=== PATIENT | male | born 2005 | race Caucasian/White ===

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

== ENCOUNTER 2025-03-25 22:46 | Emergency (ER) | payer OTHER, SELFPAY ==
--- OUTSIDE RECORDS SUMMARY | 2025-03-25 22:49 | XMS_ITS | Clinical Summary ---
Author Organization [facility] Address [address] [place] [address] Care Team Providers Care Cheese Cook Name Role Phone Unavailable Primary Care Provider Unavailabl e Social History Tobacco Use Types Packs/Day Years Used Date Smoking Tobacco: Never Assessed Sex and Gender Information Value Date Recorded Sex Assigned at Not on file Legal Sex Male 8:24 PM CDT Gender Identity Not on file Sexual Orientation Not on file Last Filed Vital Signs Vital Sign Reading Time Taken Comments Blood Pressure 82/52 10/22/2012 2:48 PM EDGE STRIPPER Pulse 84 10/22/2012 2:48 PM EDGE STRIPPER Temperature - - Respiratory Rate - - Oxygen Saturation - - Inhaled Oxygen Concentration - - Weight 20.1 kg (44 lb 6.4 oz) 10/22/2012 2:48 PM EDGE STRIPPER Height 123.2 cm (4' 0.5 ) 10/22/2012 2:48 PM EDGE STRIPPER Body Mass Index 13.27 10/22/2012 2:48 PM EDGE STRIPPER Body Mass Index Percentile 1.28% 10/22/2012 2:4 8 PM EDGE STRIPPER Growth Chart: [facility] (Boys, 2-2 0 Years) Plan of Treatment Health Maintenance Due Date Last Done Comments Annual Physical 2008 HPV Vaccines (1 - Male 3-dos e series) 2020 Meningococcal B Vaccine (1 o f 2 - Standard) 2021 Hepatitis C 2023 DTaP, Tdap and Td Vaccines ( 1 - Tdap) 2024 Hepatitis B Vaccines (1 of 3 - 19+ 3-dose series) 2024 COVID-19 Vaccine (1 - 2023-2 5 season) 2024 Meningococcal Vaccine Aged Out No reinaldo holly eligible based on patient's age to complete this topic Pneumococcal Vaccine: Pediat rics (0 to 5 Years) and At-Risk Patients (6 to 49 Years) Aged Out No longer eligible b ased on patient's age to complete this topic RSV Immunizations Under 20 Months Aged Out No longer eligible based on patient's age to complete this topic
[2025-03-25 22:50] VITALS: BP 121/52; PULSE 96; RESP 18; TEMP 36.7; O2SAT 99
[2025-03-25 23:37] LABS: Basophils Absolute Auto 0.1 K/mm3 (0.0-0.1); Basophils Percent Auto 0.6 % (0.2-1.2); Eosinophils Absolute Auto 0.1 K/mm3 (0-0.3); Eosinophils Percent Auto 1.5 % (0-4.4); Hematocrit 45.1 % (42.0-52.0); Hemoglobin 15.5 g/dL (14.0-18.0); Immature Granulocyte Absolute 0.02 K/mm3 (0.00-0.031); Immature Granulocyte Percent A 0.3 % (0-0.5); Lymphocytes Absolute Auto 2.16 K/mm3 (0.9-3.2); Lymphocytes Percent Auto 27.4 % (18.3-44.2); Mean Corpuscular HGB Conc 34.4 g/dl (32-36); Mean Corpuscular Hemoglobin 32.2 pg (26-34); Mean Corpuscular Volume 93.8 fl (80-100); Mean Platelet Volume 9.1 fl (7.4-10.4); Monocytes Absolute Auto 0.9 K/mm3 (0.1-0.6); Monocytes Percent Auto 11.5 % (2.6-8.5); Neutrophils Absolute Auto 4.6 K/mm3 (1.3-6.7); Neutrophils Percent Auto 58.7 % (45.5-73.1); Platelet Count Result 402 k/mm3 (150-375); Red Blood Count 4.81 M/mm3 (4.6-6.20); Red Cell Distribution Width 11.9 % (11.5-14.5); White Blood Count 7.9 K/mm3 (4.5-10.0)
[2025-03-25 23:49] LABS: Ethanol < 10 mg/dL (<10)
[2025-03-25 23:54] LABS: Amphetamine Screen Urine Negative (Negative); Barbiturate Screen Urine Negative (Negative); Benzodiazepines Screen Urine Negative (Negative); Cannabinoid Screen Urine Negative (Negative); Cocaine Screen Urine Negative (Negative); Methadone Screen Urine Negative (Negative); Opiate Screen Urine Negative (Negative); Phencyclidine Screen Urine Negative (Negative)
[2025-03-25 23:56] LABS: Alanine Aminotransferase 13 U/L (6-50); Alkaline Phosphatase 82 U/L (58-237); Anion Gap 13 mmol/L (4-12); Aspartate Amino Transferase 23 U/L (17-59); Bilirubin,Total 0.5 mg/dL (0.2-1.3); Blood Urea Nitrogen 5 mg/dL (8-21); Calcium 9.3 mg/dL (8.9-10.7); Carbon Dioxide 27 mmol/L (22-30); Chloride 104 mmol/L (98-107); Estimated CRCL calculation 96 ml/min; Estimated Glomerular Filt Rate > 60; Glucose 106 mg/dL (65-110); Potassium 3.5 mmol/L (3.4-5.0); Sodium 144 mmol/L (134-143)
[2025-03-26 00:03] LABS: Add Urine Microscopic? YES; Appearance Urine Clear (Clear); Bacteria Urine None Seen /hpf; Bilirubin Urine Negative (Negative); Blood Urine Negative (Negative); Color Urine Yellow (Yellow); Glucose Urine UA Negative (Negative); Ketones Urine Trace mg/dL (Negative); Leukocyte Esterase Ur Negative LEU/UL (Negative); Mucus Urine Present /lpf; Need Manual Microscopic Reviewed; Nitrate Urine Negative (Negative); Protein Urine 1+ mg/dL (Negative); RBC Urine 0-2 /hpf (0-2); Specific Grav Ur 1.021 (1.001-1.035); Squamous Epithelial Cell Urine None Seen /hpf (Few); WBC Urine 0-5 /hpf (0-3)
[2025-03-26 00:08] LABS: Free T4 Free Thyroxine 1.13 ng/dL (0.78-2.19)
[2025-03-26 00:13] LABS: Influenza A QL RT-PCR Negative (Negative); Influenza B QL RT-PCR Negative (Negative); RSV RNA, RT-PCR Negative (Negative); SARS-CoV-2 RNA PCR Negative (Negative)
--- OUTSIDE RECORDS SUMMARY | 2025-03-26 00:21 | XMS_ITS | Clinical Summary ---
Author Organization [facility] Address [address] [place] [address] Care Team Providers Care Bulker Name Role Phone Unavailable Primary Care Provider [...] Comments Blood Pressure 82/52 10/22/2012 2:48 PM CLAIM AGENT Pulse 84 10/22/2012 2:48 PM CLAIM AGENT Temperature - - Respiratory Rate - - Oxygen Saturation - - Inhaled Oxygen Concentration - - Weight 20.1 kg (44 lb 6.4 oz) 10/22/2012 2:48 PM CLAIM AGENT Height 123.2 cm (4' 0.5 ) 10/22/2012 2:48 PM CLAIM AGENT Body Mass Index 13.27 10/22/2012 2:48 PM CLAIM AGENT Body Mass Index Percentile 1.28% 10/22/2012 2:4 8 PM CLAIM AGENT Growth Chart: [facility] (Boys, 2-2 0 Years) Plan of Treatment [...]
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
[2025-03-26 05:51] VITALS: BP 113/66; PULSE 76; RESP 19; TEMP 36.7; O2SAT 99
--- NOTE | 2025-03-26 07:10 | PC.NURSE ---
Pt has been accepted at [facility], report given to Luh EVANS.
== END 2025-03-26 07:12 ==
LOC: ANHED 03-26 00:16
PROVIDERS: Emergency Provider Registered Nurse
DX: R45.851 Suicidal ideations (principal); Z59.00 Homelessness unspecified; Z11.59 Encounter for screening for other viral diseases
CPT/HCPCS: 36415; 80053; 80307; 81001; 82077; 84439; 84443; 85025; 87637; 99285

== ENCOUNTER 2025-09-22 22:34 | Emergency (ER) | payer OTHER, SELFPAY ==
[2025-09-22 22:41] VITALS: BP 140/82; PULSE 96; RESP 16; TEMP 37.1; O2SAT 100
[2025-09-22 23:14] LABS: Add Urine Microscopic? NO; Appearance Urine Clear (Clear); Glucose Urine UA Negative (Negative); Leukocyte Esterase Ur Negative LEU/UL (Negative); Nitrate Urine Negative (Negative); Specific Grav Ur 1.006 (1.001-1.035)
[2025-09-22 23:14] LABS: Hematocrit 46.0 % (42.0-52.0); Hemoglobin 16.0 g/dL (14.0-18.0); Immature Granulocyte Percent A 0.2 % (0-0.5); Lymphocytes Absolute Auto 2.42 K/mm3 (0.9-3.2); Mean Corpuscular HGB Conc 34.8 g/dl (32-36); Mean Corpuscular Hemoglobin 32.1 pg (26-34); Mean Corpuscular Volume 92.2 fl (80-100); Nucleated Red Blood Cells Absolute Auto 0.000 K/mm3 (0.0-0.012); Nucleated Red Blood Cells Perc 0.0 % (0.0-0.2); Platelet Count Result 570 k/mm3 (150-375); Red Blood Count 4.99 M/mm3 (4.6-6.20); White Blood Count 10.8 K/mm3 (4.5-10.0)
--- NOTE | 2025-09-22 23:30 | PC.NURSE ---
Pt presents to ED for psych evaluation states he has been depressed for the past 3 days with suicidal ideation. When asked if he has a plan pt states i have multiple which probably isn't good. I plan on carving horrible words on my body, slice my throat and wrist, or overdose on my medications. Pt states he has been homeless for 2 years, and is losing friends.
[2025-09-22 23:32] LABS: Cannabinoid Screen Urine Negative (Negative)
[2025-09-22 23:33] LABS: Alanine Aminotransferase 14 U/L (6-50); Albumin Level 5.0 g/dL (3.5-5.1); Alkaline Phosphatase 77 U/L (38-126); Anion Gap 9 mmol/L (4-12); Aspartate Amino Transferase 19 U/L (17-59); Bilirubin,Total 0.6 mg/dL (0.2-1.3); Blood Urea Nitrogen 8 mg/dL (9-20); Calcium 9.3 mg/dL (8.4-10.2); Carbon Dioxide 26 mmol/L (22-30); Chloride 105 mmol/L (98-107); Estimated CRCL calculation 82 ml/min; Estimated Glomerular Filt Rate > 60; Glucose 103 mg/dL (65-110); Potassium 3.8 mmol/L (3.4-5.0); Sodium 140 mmol/L (137-145); Total Protein 7.7 g/dL (6.3-8.2)
[2025-09-22 23:38] VITALS: BP 120/90; PULSE 99; RESP 16; TEMP 37.2; O2SAT 99
[2025-09-22 23:46] LABS: Influenza A QL RT-PCR Negative (Negative); Influenza B QL RT-PCR Negative (Negative); RSV RNA, RT-PCR Negative (Negative); SARS-CoV-2 RNA PCR Negative (Negative)
[2025-09-22 23:53] LABS: Thyroid Stimulating Hormone Reflex 1.150 uIU/mL (0.465-4.68)
--- NOTE | 2025-09-23 00:06 | ED_ITS ---
HPI - Psych General Chief Complaint: Psychiatric Symptoms <Veronica Castro APRN - Last Filed: 09/23/25 02:12> Stated Complaint: depression and self harm <Veronica Castro APRN - Last Filed: 09/23/25 02:12> Time Seen by Provider: 09/22/25 22:59 <Veronica Castro APRN - Last Filed: 09/23/25 02:12> History of Present Illness HPI Narrative: Patient is a 20-year-old male presents to the ER with suicidal ideation and depression. He reports he is homeless and has had increased stress in his life recently. Patient was here for evaluation 6 months ago and was treated in a psychiatric hospital. He reports he was discharged on medications and was doing better but then he became stressed again and stop taking his medications. Patient reports he was discharged home on Risperdal, sertraline, and trazodone. Patient endorses decreased p.o. intake recently. He reports his suicidal ideation restarted 3 days ago when he could not sleep and started ruminating about taking a knife to his arms, wrists, neck, and then hanging himself. Patient reports those extreme thoughts have decreased some but he is still having suicidal ideation. He denies any other medical history relevant to this ER visit. Patient denies any physical pain, recent fevers, or shortness of breath. <Veronica Castro APRN - Last Filed: 09/23/25 02:12> Related Data Home Medications: Home Medications ?Medication ?Instructions ?Recorded ?Confirmed ?Last Taken ?Type No Home Medications 02/22/24 02/22/24 U nknown History <Veronica Castro APRN - Last Filed: 09/23/25 02:12> Allergies/Adverse Reactions: Allergies Allergy/AdvReac Type Severity Reaction Status Date / Time No Known Allergies Allergy Verified 09/22/25 22:35 <Veronica Castro APRN - Last Filed: 09/23/25 02:12> Review of Systems 2 Review of Systems: All systems reviewed & are unremarkable except as noted in HPI and below <Veronica Castro APRN - Last Filed: 09/23/25 02:12> COUNTS INCLUDE 234 BEDS AT THE [facility] Social History Social History: Social History Substance use type: does not use <Veronica Castro APRN - Last Filed: 09/23/25 02:12> Exam 2 Narrative: GENERAL: Well appearing, cachetic, non-toxic, in no acute distress. HEAD: Normocephalic, atraumatic. NECK: Supple. No adenopathy, no masses. RESPIRATORY: Airway patent, respirations nonlabored. Clear to auscultation bilaterally, no rales, rhonchi, wheezing. CARDIOVASCULAR: Regular rate and rhythm without murmurs, rubs, or gallops. Peripheral pulses 2+ and equal bilaterally. ABDOMINAL: Soft, nontender, nondistended, no hepatosplenomegaly. Normoactive BS. MUSCULOSKELETAL: Moves all extremities. Strength/ROM intact without gross deformities. SKIN: Warm, dry, pallor. No rashes. NEURO: A&O X3. pallor. Cranial nerves II-XII intact. No ataxic movements. PSYCHIATRIC: Appropriate mood and affect. Normal interaction. <Veronica Castro APRN - Last Filed: 09/23/25 02:12> Course Course Emergency Course: SELINA: Patient was evaluated by crisis. He was safety planned. Patient discharged. <Eduardo Levin MD - Last Filed: 09/23/25 05:49> Vital Signs Vital signs: Vital Signs Temperature 98.7 F 09/22/25 22:41 Pulse Rate 96 09/22/25 22:41 Respiratory Rate 16 09/22/25 22:41 Blood Pressure 140/82 09/22/25 22:41 Pulse Oximetry 100 09/22/25 22:41 Oxygen Delivery Room Air 09/22/25 22:41 Temperature 98.9 F 09/22/25 23:38 Pulse Rate 99 09/22/25 23:38 Respiratory Rate 16 09/22/25 23:38 Blood Pressure 120/90 09/22/25 23:38 Pulse Oximetry 99 09/22/25 23:38 Oxygen Delivery Room Air 09/22/25 22:41 <Veronica Castro APRN - Last Filed: 09/23/25 02:12> Vital Signs Temperature 98.7 F 09/22/25 22:41 Pulse Rate 96 09/22/25 22:41 Respiratory Rate 16 09/22/25 22:41 Blood Pressure 140/82 09/22/25 22:41 Pulse Oximetry 100 09/22/25 22:41 Oxygen Delivery Room Air 09/22/25 22:41 Temperature 98.9 F 09/22/25 23:38 Pulse Rate 99 09/22/25 23:38 Respiratory Rate 16 09/22/25 23:38 Blood Pressure 120/90 09/22/25 23:38 Pulse Oximetry 99 09/22/25 23:38 Oxygen Delivery Room Air 09/22/25 22:41 <Eduardo Levin MD - Last Filed: 09/23/25 05:49> MDM - Psych MDM Narrative Medical decision making narrative: Patient is a 20-year-old male presents to the ER with suicidal ideation and depression. He reports he is homeless and has had increased stress in his life recently. Patient was here for evaluation 6 months ago and was treated in a psychiatric hospital. He reports he was discharged on medications and was doing better but then he became stressed again and stop taking his medications. Patient reports he was discharged home on Risperdal, sertraline, and trazodone. Patient endorses decreased p.o. intake recently. He reports his suicidal ideation restarted 3 days ago when he could not sleep and started ruminating about taking a knife to his arms, wrists, neck, and then hanging himself. Patient reports those extreme thoughts have decreased some but he is still having suicidal ideation. He denies any other medical history relevant to this ER visit. Patient denies any physical pain, recent fevers, or shortness of breath. He would like to be admitted to a psychiatric hospital for further treatment. Labs Ordered: CBC, CMP, TSH, UA, UDS, COVID/flu/RSV Imaging Ordered: None necessary Medications Ordered: None necessary Results: Patient's lab work results were largely unremarkable. Diagnosis: Suicidal ideation, major depressive disorder Consults: 2400-patient is medically clear for psychiatric intake. 0200- Psychiatric intake here to evaluate pt. <Veronica Castro APRN - Last Filed: 09/23/25 02:12> Differential Diagnosis Differential diagnosis: Likely acute psychosis, suicidal ideation, bipolar disorder, depression, drug-induced psychotic disorder and acute anxiety <Veronica Castro APRN - Last Filed: 09/23/25 02:12> Lab Data Attestation: I reviewed the patient's lab results. <Veronica Castro APRN - Last Filed: 09/23/25 02:12> Result diagrams: 09/22/25 23:04 09/22/25 23:03 <Veronica Castro APRN - Last Filed: 09/23/25 02:12> Labs: Lab Results 09/22/25 09/22/25 09/22/25 Range/Units 23:02 23:03 23:04 WBC 10.8 H (4.5-10.0) K/mm3 RBC 4.99 (4.6-6.20) M/mm3 Hgb 16.0 (14.0-18.0) g/dL Hct 46.0 (42.0-52.0) % MCV 92.2 (80-100) fl MCH 32.1 (26-34) pg MCHC 34.8 (32-36) g/dl RDW 11.9 (11.5-14.5) % Plt Count 570 H (150-375) k/mm3 MPV 9.2 (7.4-10.4) fl Immature Gran % (Auto) 0.2 (0-0.5) % Neut % (Auto) 67.3 (45.5-73.1) % Lymph % (Auto) 22.5 (18.3-44.2) % [place] % (Auto) 8.2 (2.6-8.5) % Eos % (Auto) 1.2 (0-4.4) % Baso % (Auto) 0.6 (0.2-1.2) % Lymph # (Auto) 2.42 (0.9-3.2) K/mm3 [place] # (Auto) 0.9 H (0.1-0.6) K/mm3 Eos # (Auto) 0.1 (0-0.3) K/mm3 Baso # (Auto) 0.1 (0.0-0.1) K/mm3 Abs Immat Gran (auto) 0.02 (0.00-0.031) K/mm3 Absolute Neuts (auto) 7.3 H (1.3-6.7) K/mm3 Absolute Nucleated RBC 0.000 (0.0-0.012) K/mm3 Nucleated RBC % 0.0 (0.0-0.2) % Sodium 140 (137-145) mmol/L Potassium 3.8 (3.4-5.0) mmol/L Chloride 105 (98-107) mmol/L Carbon Dioxide 26 (22-30) mmol/L Anion Gap 9 (4-12) mmol/L BUN 8 L (9-20) mg/dL Creatinine 0.89 (0.7-1.3) mg/dL Estim Creat Clear Calc 82 ml/min Estimated GFR > 60 (59 - ) Glucose 103 (65-110) mg/dL Calcium 9.3 (8.4-10.2) mg/dL Total Bilirubin 0.6 (0.2-1.3) mg/dL AST 19 (17-59) U/L ALT 14 (6-50) U/L Alkaline Phosphatase 77 (38-126) U/L Total Protein 7.7 (6.3-8.2) g/dL Albumin 5.0 (3.5-5.1) g/dL TSH (Reflex) 1.150 (0.465-4.68) uIU/mL Urine Color Yellow (Yellow) Urine Appearance Clear (Clear) Urine pH 7.5 (5.0-9.0) Ur Specific [place] 1.006 (1.001-1.035) Urine Protein Negative (Negative) mg/dL Urine Glucose (UA) Negative (Negative) mg/dL Urine Ketones Negative (Negative) mg/dL Ur Blood (Man) Negative (Negative) Urine Nitrate Negative (Negative) Urine Bilirubin Negative (Negative) Urine Urobilinogen 0.2 (<2.0) mg/dL Leukocyte Esterase Rfl Negative (Negative) DARLINE/UL Urine Opiates Screen Negative (Negative) Urine Methadone Screen Negative (Negative) Ur Barbiturates Screen Negative (Negative) Ur Phencyclidine Scrn Negative (Negative) Ur Amphetamine Screen Negative (Negative) U Benzodiazepines Scrn Negative (Negative) Urine Cocaine Screen Negative (Negative) U Cannabinoids Screen Negative (Negative) Ethyl Alcohol < 10 (<10) mg/dL Influenza A (RT-PCR) Negative (Negative) Influenza B (RT-PCR) Negative (Negative) RSV (RT-PCR) Negative (Negative) SARS-CoV-2 RNA (RT-PCR) Negative (Negative) <Veronica Castro, GOLF COURSE PATROLLER - Last Filed: 09/23/25 02:12> Lab Results 09/22/25 09/22/25 09/22/25 Range/Units 23:02 23:03 23:04 WBC 10.8 H (4.5-10.0) K/mm3 RBC 4.99 (4.6-6.20) M/mm3 Hgb 16.0 (14.0-18.0) g/dL Hct 46.0 (42.0-52.0) % MCV 92.2 (80-100) fl MCH 32.1 (26-34) pg MCHC 34.8 (32-36) g/dl RDW 11.9 (11.5-14.5) % Plt Count 570 H (150-375) k/mm3 MPV 9.2 (7.4-10.4) fl Immature Gran % (Auto) 0.2 (0-0.5) % Neut % (Auto) 67.3 (45.5-73.1) % Lymph % (Auto) 22.5 (18.3-44.2) % [place] % (Auto) 8.2 (2.6-8.5) % Eos % (Auto) 1.2 (0-4.4) % Baso % (Auto) 0.6 (0.2-1.2) % Lymph # (Auto) 2.42 (0.9-3.2) K/mm3 [place] # (Auto) 0.9 H (0.1-0.6) K/mm3 Eos # (Auto) 0.1 (0-0.3) K/mm3 Baso # (Auto) 0.1 (0.0-0.1) K/mm3 Abs Immat Gran (auto) 0.02 (0.00-0.031) K/mm3 Absolute Neuts (auto) 7.3 H (1.3-6.7) K/mm3 Absolute Nucleated RBC 0.000 (0.0-0.012) K/mm3 Nucleated RBC % 0.0 (0.0-0.2) % Sodium 140 (137-145) mmol/L Potassium 3.8 (3.4-5.0) mmol/L Chloride 105 (98-107) mmol/L Carbon Dioxide 26 (22-30) mmol/L Anion Gap 9 (4-12) mmol/L BUN 8 L (9-20) mg/dL Creatinine 0.89 (0.7-1.3) mg/dL Estim Creat Clear Calc 82 ml/min Estimated GFR > 60 (59 - ) Glucose 103 (65-110) mg/dL Calcium 9.3 (8.4-10.2) mg/dL Total Bilirubin 0.6 (0.2-1.3) mg/dL AST 19 (17-59) U/L ALT 14 (6-50) U/L Alkaline Phosphatase 77 (38-126) U/L Total Protein 7.7 (6.3-8.2) g/dL Albumin 5.0 (3.5-5.1) g/dL TSH (Reflex) 1.150 (0.465-4.68) uIU/mL Urine Color Yellow (Yellow) Urine Appearance Clear (Clear) Urine pH 7.5 (5.0-9.0) Ur Specific [place] 1.006 (1.001-1.035) Urine Protein Negative (Negative) mg/dL Urine Glucose (UA) Negative (Negative) mg/dL Urine Ketones Negative (Negative) mg/dL Ur Blood (Man) Negative (Negative) Urine Nitrate Negative (Negative) Urine Bilirubin Negative (Negative) Urine Urobilinogen 0.2 (<2.0) mg/dL Leukocyte Esterase Rfl Negative (Negative) DARLINE/UL Urine Opiates Screen Negative (Negative) Urine Methadone Screen Negative (Negative) Ur Barbiturates Screen Negative (Negative) Ur Phencyclidine Scrn Negative (Negative) Ur Amphetamine Screen Negative (Negative) U Benzodiazepines Scrn Negative (Negative) Urine Cocaine Screen Negative (Negative) U Cannabinoids Screen Negative (Negative) Ethyl Alcohol < 10 (<10) mg/dL Influenza A (RT-PCR) Negative (Negative) Influenza B (RT-PCR) Negative (Negative) RSV (RT-PCR) Negative (Negative) SARS-CoV-2 RNA (RT-PCR) Negative (Negative) <Eduardo Levin MD - Last Filed: 09/23/25 05:49> Discharge Plan Discharge Clinical Impression: Depression with suicidal ideation, Major depressive disorder <Veronica Castro, MERRICK - Last Filed: 09/23/25 02:12> Patient Disposition: Home <Veronica Castro APRN - Last Filed: 09/23/25 02:12> Condition: Stable <Veronica Castro APRN - Last Filed: 09/23/25 02:12> Instructions: Antibiotic Form <Veronica Castro APRN - Last Filed: 09/23/25 02:12> Additional Instructions: Please return to the ED if you develop thoughts of harming yourself or others. <Veronica Castro APRN - Last Filed: 09/23/25 02:12> Patient Language: Kiswahili <Veronica Castro APRN - Last Filed: 09/23/25 02:12> Prescriptions: No Action No Home Medications <Veronica Castro APRN - Last Filed: 09/23/25 02:12> Follow-up/Referrals: PHYSICIAN,STARBUCKS CLERK [Primary Care Provider, Internal Medicine] <Veronica Castro APRN - Last Filed: 09/23/25 02:12>
--- NOTE | 2025-09-23 00:30 | PC.NURSE ---
spoke to [place] from [facility], pt not a candidate for evaluation due to insurance
[2025-09-23 06:10] VITALS: BP 121/73; PULSE 78; RESP 16; O2SAT 98
--- OUTSIDE RECORDS SUMMARY | 2025-09-23 15:51 | XMS_ITS | Clinical Summary ---
Author Organization [facility] Address [address] [place] [address] Care Team Providers Care Trains Service Conductor Name Role Phone Unavailable Primary Care Provider [...] Comments Blood Pressure 82/52 10/22/2012 2:48 PM VICE PRESIDENT UNDERWRITING Pulse 84 10/22/2012 2:48 PM VICE PRESIDENT UNDERWRITING Temperature - - Respiratory Rate - - Oxygen Saturation - - Inhaled Oxygen Concentration - - Weight 20.1 kg (44 lb 6.4 oz) 10/22/2012 2:48 PM VICE PRESIDENT UNDERWRITING Height 123.2 cm (4' 0.5) 10/22/2012 2:48 PM VICE PRESIDENT UNDERWRITING Body Mass Index 13.27 10/22/2012 2:48 PM VICE PRESIDENT UNDERWRITING Plan of Treatment Health Maintenance Due Date Last Done Comments Annual Physical 2008 HPV Vaccines (1 - Male 3-dos e series) 2020 Meningococcal B Vaccine (1 o f 2 - Standard) 2021 Hepatitis C 2023 DTaP, Tdap and Td Vaccines ( 1 - Tdap) 2024 Hepatitis B Vaccines (1 of 3 - 19+ 3-dose series) 2024 COVID-19 Vaccine (1 - 2024-2 6 season) 2025 Influenza Adult (#1) 2025 Hepatitis A Vaccines Aged Out No long er eligible based on patient's age to complete this topic Meningococcal Vaccine Aged Out No reinaldo holly [...]
== END 2025-09-23 06:10 | disposition home or self-care (01) ==
PROVIDERS: Emergency Medicine; Emergency Provider Registered Nurse
DX: F32.9 Major depressive disorder, single episode, unspecified (principal); R45.851 Suicidal ideations; Z11.52 Encounter for screening for COVID-19; Z59.01 Sheltered homelessness; T43.596A Underdosing of other antipsychotics and neuroleptics, initial encounter; T43.216A Underdosing of selective serotonin and norepinephrine reuptake inhibitors, initial encounter; T43.226A Underdosing of selective serotonin reuptake inhibitors, initial encounter; Z91.128 Patient's intentional underdosing of medication regimen for other reason
CPT/HCPCS: 36415; 80053; 80307; 81003; 82077; 84443; 85025; 87637; 99284